=== PATIENT | male | born 1945 | race Caucasian/White ===

== ENCOUNTER 2016-08-24 20:56 | Emergency (ER) | payer MEDICARE, OTHER ==
[2016-08-24] MEDS ORDERED: LIDOCAINE 1% 50 ML MDV SUBQ STA (22:07)
[2016-08-24] MEDS ORDERED: LIDOCAINE-MPF 1% 5 ML VIAL ONE (22:11)
== END 2016-08-24 23:01 | disposition home or self-care (01) ==
DX: S61.412A Laceration without foreign body of left hand, initial encounter (principal); W01.0XXA Fall on same level from slipping, tripping and stumbling without subsequent striking against object, initial encounter; Y93.01 Activity, walking, marching and hiking

== ENCOUNTER 2019-05-07 15:14 | Emergency (ER) | payer MEDICARE, OTHER ==
[2019-05-07] MEDS ORDERED: methylPREDNISolone SUCCINATE 125 MG/2 ML VIAL IVP STA (15:26)
[2019-05-07] MEDS ORDERED: EPINEPHrine 1 MG/ML AMP IM STA (15:26)
[2019-05-07] MEDS ORDERED: SODIUM CHLORIDE 0.9% 1,000 ML IV ONE (15:30)
--- NOTE | 2019-05-07 15:32 | ED Physician Documentation ---
PD HPI SKIN - Stated complaint Stated Complaint: BEE STING - Chief complaint Chief Complaint: Allergic Rx - History obtained from History obtained from: Patient - History of Present Illness Timing - onset: Today (Very healthy 73-year-old gentleman who sustained the third bee sting in his many weeks. He is never had a systemic reaction but today developed hives and a sensation of tongue swelling. Noted to be slightly hypotensive in triage. No shortness of breath.) - Treatment prior to arrival Treatment prior to arrival: He took 100 mg of Benadryl at home prior to arrival. Review of Systems Ten Systems: 10 systems reviewed and negative Constitutional: denies: Fever, Chills Cardiac: denies: Chest pain / pressure, Palpitations Respiratory: denies: Dyspnea, Cough PD PAST MEDICAL HISTORY - Past Surgical History Past Surgical History: No - Present Medications Home Medications: Ambulatory Orders Medication Instructions Recorded Confirmed Cephalexin [Keflex] 500 mg PO Q6H 7 Days capsule 08/24/16 EPINEPHrine [Epinephrine] 0.3 mg IJ ONCE PRN #2 auto.injct 05/07/19 predniSONE [Deltasone] 60 mg PO DAILY 5 Days #15 tablet 05/07/19 - Allergies Allergies/Adverse Reactions: Allergies Allergy/AdvReac Type Severity Reaction Status Date / Time No Known Drug Allergies Allergy Verified 08/24/16 21:05 - Social History Does the pt smoke?: No Smoking Status: Never smoker Does the pt drink ETOH?: No Does the pt have substance abuse?: No - Immunizations Immunizations are current?: Yes - POLST Patient has POLST: No PD ED PE NORMAL - Vitals Vital signs reviewed: Yes - General General: Alert and oriented X 3, No acute distress - HEENT HEENT: PERRL, EOMI, Pharynx benign - Neck Neck: Supple, no meningeal sign, No bony TTP - Cardiac Cardiac: RRR, No murmur - Respiratory Respiratory: No respiratory distress, Clear bilaterally - Abdomen Abdomen: Non tender - Derm Derm: Other (He is diffusely erythematous) - Extremities Extremities: No edema, No calf tenderness / cord - Neuro Neuro: Alert and oriented X 3, Normal speech Results - Vitals Vitals: Vital Signs - 24 hr 05/07/19 05/07/19 15:19 15:35 Temperature 36.0 C L Heart Rate 57 L 61 Respiratory 20 12 Rate Blood Pressure 86/54 L 107/77 O2 Saturation 96 100 Oxygen O2 Source Room air PD MEDICAL DECISION MAKING - ED course ED course: 73-year-old gentleman presents with apparent anaphylaxis after a bee sting on the back. He is erythematous and mildly hypotensive. He has a sensation of tongue swelling but examination there looks normal. He was attended to immediately at bedside and given IM epinephrine. He had received Benadryl at home. He also got IV fluids and steroids. Is observed for several hours, he was asymptomatic and wanted to leave. I discussed with him that what it was my prior standard practice to observe him a little longer than I plan to, but he will go straight to the pharmacy and get the EpiPen. Departure - Departure Disposition: Home, Self Care Clinical Impression: Bee sting-induced anaphylaxis Qualifiers: Encounter type: initial encounter Injury intent: accidental or unintentional Qualified Code(s): T63.441A - Toxic effect of venom of bees, accidental (unintentional), initial encounter Condition: Good Record reviewed to determine appropriate education?: Yes Instructions: ED Bite Sting Insect Gen Allergic React Prescriptions: EPINEPHrine [Epinephrine] 0.3 mg IJ ONCE PRN #2 auto.injct PRN Reason: Allergy Symptoms predniSONE [Deltasone] 60 mg PO DAILY 5 Days #15 tablet
[2019-05-07] MEDS ORDERED: EPINEPHrine 1 MG/ML AMP ONE (15:36)
[2019-05-07 18:25] VITALS: BP 102/77
== END 2019-05-07 19:13 | disposition home or self-care (01) ==
LOC: ED 15:14
DX: T63.441A Toxic effect of venom of bees, accidental (unintentional), initial encounter (principal); T78.2XXA Anaphylactic shock, unspecified, initial encounter; L50.0 Allergic urticaria; X58.XXXA Exposure to other specified factors, initial encounter
CPT/HCPCS: 96361; 96372; 96374; 99283

== ENCOUNTER 2019-10-02 10:26 | Outpatient (CLI) | payer MEDICARE, OTHER ==
--- NOTE | 2019-10-02 15:44 | XRAY Report ---
Reason: PAINFUL R FOOT Procedure Date: 10/02/2019 Accession Number: [id number] / [id number] Procedure: XR - Foot 3 View RT CPT Code: Final Report FULL RESULT: EXAM: RIGHT FOOT RADIOGRAPHY EXAM DATE: 10/02/2019 10:36 AM. CLINICAL HISTORY: PAINFUL R FOOT. Ongoing pain base of second metatarsal. COMPARISON: None. TECHNIQUE: 3 views. FINDINGS: Bones: Normal. No fractures or bone lesions. Metatarsal bases are unremarkable. 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 Soft Tissues: Normal. No soft tissue swelling. IMPRESSION: 1. 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 2. No fracture or subluxation demonstrated. [facility]
== END 2019-10-02 10:27 | disposition home or self-care (01) ==
LOC: DI 10:26
PROVIDERS: ATTEND Podiatrist
DX: M19.071 Primary osteoarthritis, right ankle and foot (principal)